=== PATIENT | female | born 1950 | race Caucasian/White ===

== ENCOUNTER → 2019-01-09 | Emergency (ER) | payer MEDICARE, OTHER ==
[~2019-01-09] VITALS: Ht 152.4 cm; Wt 70.3 kg
[~2019-01-09] MED LIST: ALBUTEROL SULFATE 2.5 MG/3 ML NEBU NEB ONE; ALBUTEROL SULFATE 2.5 MG/3 ML NEBU ONE; ATOR40TA PO; CITA20TA16 PO; DOXE10CA2 PO; LEVO100T78 PO; LOSA1TAB36 PO; METO25TA6 PO; PRAM1.5T3 PO
--- NOTE | 2019-01-09 02:20 | NUR ---
Pt. ambulated into ED w/ daughter w/ c/o coughing x 1 week, denies CP/MELGAR/F/C/N/V, A/Ox4, RR even and unlabored, speaks in clear and complete sentences, pt. frequently coughs and c/o sore throat,
--- NOTE | 2019-01-09 02:32 | NUR ---
RT called for breathing treatment,
--- NOTE | 2019-01-09 02:38 | NUR ---
Rad. called for CXR, RT at bedside,
--- NOTE | 2019-01-09 03:12 | NUR ---
Patient discharged to home in stable conditon. Written and verbal after care instructions given. Patient verbalizes understanding of instructions. Pt. d/c w/ prescription per MD order, d/c papers signed, all belongings w/ pt., ID band removed, instructed not to drive, ambulated off unit w/ steady gait accompanied by daughter, NAD
== END | disposition home or self-care (01) ==
LOC: ER 02:12
DX: J40 Bronchitis, not specified as acute or chronic (principal); J98.01 Acute bronchospasm; E78.5 Hyperlipidemia, unspecified; E03.9 Hypothyroidism, unspecified; I25.10 Atherosclerotic heart disease of native coronary artery without angina pectoris; I10 Essential (primary) hypertension; Z79.899 Other long term (current) drug therapy
CPT/HCPCS: 71046; A4663